=== PATIENT | female | born 1940 | race Caucasian/White ===

== ENCOUNTER → 2018-10-18 | Outpatient (CLI) | payer MEDICARE, OTHER | END | disposition home or self-care (01) | LOC: OIH 15:50 | PROVIDERS: ATTEND Internal Medicine | DX: J44.1 Chronic obstructive pulmonary disease with (acute) exacerbation (principal) | CPT/HCPCS: 71046 ==

== ENCOUNTER → 2021-02-20 | Day surgery (SDC) | payer MEDICARE, OTHER | END | disposition home or self-care (01) | LOC: RAH 10:12 | PROVIDERS: ATTEND Internal Medicine | DX: R07.81 Pleurodynia (principal); R07.89 Other chest pain | CPT/HCPCS: 71100 ==

== ENCOUNTER → 2022-09-29 | Outpatient (CLI) | payer MEDICARE, OTHER | END | disposition home or self-care (01) | LOC: RAH 14:06 | PROVIDERS: ATTEND Internal Medicine | DX: R10.814 Left lower quadrant abdominal tenderness (principal); N32.89 Other specified disorders of bladder; M41.9 Scoliosis, unspecified; M47.815 Spondylosis without myelopathy or radiculopathy, thoracolumbar region | CPT/HCPCS: 74176 ==